=== PATIENT | female | born 1985 | race Caucasian/White ===

== ENCOUNTER → 2024-07-14 11:52 | Outpatient (REF) | payer OTHER, SELFPAY | LOC: MRI 3T 11:52 | PROVIDERS: ATTENDING PHYSICIAN Internal Medicine Gastroenterology; FAMILY PHYSICIAN Physician Assistant Medical | DX: K52.9 Noninfective gastroenteritis and colitis, unspecified (principal) | CPT/HCPCS: 72197; 74183; A9575 ==